=== PATIENT | male | born 1975 | race Caucasian/White ===

== ENCOUNTER 2024-01-16 14:37 | Emergency (ER) | payer OTHER ==
[2024-01-16 14:51] VITALS: BP 126/93; PULSE 61; RESP 18; TEMP 98.2; BMI 31.8
[2024-01-16] MEDS ORDERED: ACETAMINOPHEN 500 MG TABLET (FP) ONE (15:20)
[2024-01-16] MEDS: ACETAMINOPHEN 500 MG TABLET (FP) PO ONE (15:22)
== END 2024-01-16 18:42 | disposition home or self-care (01) ==
LOC: JERFT 14:37
DX: S89.91XA Unspecified injury of right lower leg, initial encounter (principal); R51.9 Headache, unspecified; Y09 Assault by unspecified means
CPT/HCPCS: 70450-TC; 73560-TC-RT-FY; 82962; 99285-25

== ENCOUNTER 2025-05-19 13:55 | Emergency (ER) | payer OTHER ==
[2025-05-19 14:00] VITALS: TEMP 98.1; BMI 32.5
[2025-05-19] MEDS ORDERED: ONDANSETRON 4 MG/2 ML VIAL ONE (14:59)
[2025-05-19] MEDS: ONDANSETRON 4 MG/2 ML VIAL IVPUSH ONE (15:14)
[2025-05-19] MEDS: SODIUM CHLORIDE 0.9% 500 ML INFUS.BAG IV ONE (15:14)
[2025-05-19 15:26] LABS: ABSOLUTE IMMATURE GRANULOCYTES 0.04 x10^3/uL (0.0-0.031); BASOPHILS # 0.03 x10^3/uL (0.01-0.08); EOSINOPHIL % 0.4 % (0.8-7.0); EOSINOPHILS # 0.03 x10^3/uL (0.04-0.54); MCHC 34.1 g/dl (32.3-36.5); MEAN CELL VOLUME 84.5 fl (79.0-92.2); MEAN PLT VOLUME 9.8 fl (9.4-12.4); MONOCYTE # 0.50 x10^3/uL (0.30-0.82); MONOCYTE % 6.5 % (5.3-12.2); RDW 12.0 % (12.1-15.9)
[2025-05-19 15:27] LABS: BG HCT 52.0 % (35.4-49); URINE APPEARANCE CLEAR; URINE BILIRUBIN NEGATIVE (NEGATIVE); URINE COLOR YELLOW; URINE GLUCOSE (UA) 3+ (NEGATIVE); URINE KETONE NEGATIVE (NEGATIVE); URINE LEUK ESTERASE NEGATIVE (NEGATIVE); URINE NITRITE NEGATIVE (NEGATIVE); URINE PROTEIN NEGATIVE (NEGATIVE); URINE UROBILINOGEN 0.2 mg/dL (0.2-1.0); VENOUS BASE EXCESS -2.8 mmol/L (-2-2); VENOUS O2 SATURATION 21.9 % (70-80); VENOUS PCO2 46.3 mmHg (38-52); VENOUS PH 7.325 (7.310-7.410)
[2025-05-19 15:58] LABS: GLUCOSE,RANDOM 267.0 mg/dL (74-106); TOT PROT 8.8 g/dl (6.4-8.2)
[2025-05-19 15:59] LABS: CO2 25.0 mmol/L (21-32)
[2025-05-19 16:01] LABS: ALK PHOS 99.0 U/L (40-150)
[2025-05-19 16:03] LABS: SGPT/ALT 47.0 U/L (0-55)
[2025-05-19 16:04] LABS: CREATININE 0.78 mg/dL (0.55-1.3); SGOT/AST 30.0 U/L (5-34)
[2025-05-19 16:13] LABS: HCV DIAGNOSTIC IN-HOUSE W/RFLX NON-REACTIVE (NONREACTIVE)
[2025-05-19 16:14] LABS: HIV INTERPRETATION NEGATIVE (NEGATIVE)
[2025-05-19 17:24] VITALS: BP 136/70; PULSE 86; RESP 18
== END 2025-05-19 17:24 | disposition home or self-care (01) ==
LOC: JER 13:55
PROC: 3E033GC Introduction of Other Therapeutic Substance into Peripheral Vein, Percutaneous Approach (ICD-10-PCS; principal; 2025-05-19)
DX: R11.2 Nausea with vomiting, unspecified (principal); R19.7 Diarrhea, unspecified; R10.13 Epigastric pain; R10.30 Lower abdominal pain, unspecified; R35.0 Frequency of micturition; R00.0 Tachycardia, unspecified; R07.9 Chest pain, unspecified
CPT/HCPCS: 36415; 71045-TC-FY; 73630-TC-RT-FY; 80053; 81003; 82010; 82803; 82962; 83735; 84100; 84484; 85025; 86803; 87086; 87389; 87637-QW; 93005; 93010; 99285-25